=== PATIENT | male | born 1975 | race Caucasian/White ===

== ENCOUNTER 2021-03-02 20:41 | Emergency (ER) | payer OTHER ==
[2021-03-02 21:16] LABS: HEMOGLOBIN 15.2 gm/dl (14.0-17.5); RED BLOOD COUNT 4.77 M/UL (4.20-5.50); WHITE BLOOD COUNT 8.5 K/UL (4.5-11.0)
[2021-03-02 21:45] LABS: BUN/CREATININE RATIO 29 (0-10)
[2021-03-03 01:51] LABS: BUN/CREATININE RATIO 31 (0-10)
[2021-03-03] MEDS ORDERED: HUMALOG 10100 UNITS/ SQ (03:10)
[2021-03-03] MEDS ORDERED: OMNIPOD DASH1 EACH SQ (03:15)
== END 2021-03-03 03:04 | disposition home or self-care (01) ==
LOC: ER1 20:41
PROVIDERS: Physician Assistant Medical; Student in an Organized Health Care Education/Training Program
DX: E11.65 Type 2 diabetes mellitus with hyperglycemia (principal); Z88.0 Allergy status to penicillin; Z79.4 Long term (current) use of insulin; Z20.822 Contact with and (suspected) exposure to COVID-19
CPT/HCPCS: 80048; 80053; 81001; 82009; 82803; 82962; 85025; 94760; 96374; 99284; U0002